=== PATIENT | male | born 1960 | race Caucasian/White ===

== ENCOUNTER 2016-10-21 22:40 | Emergency (ER) | payer MEDICARE, OTHER ==
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
[~2016-10-21 22:40] MED LIST: AUGMENTIN PO; BACTRIM DS TABL1 TAB PO; DEPAKOTE ER PO; DILANTIN PO; FLOXIN20 EA AS; KEFLEX PO; KENALOG IN ORABA5 GM TOP; KEPPRA1000 MG PO; KEPPRA750 MG PO; NEURONTIN PO
== END 2016-10-22 00:10 | disposition home or self-care (01) ==
LOC: CED 22:40
DX: S82.145A Nondisplaced bicondylar fracture of left tibia, initial encounter for closed fracture (principal); S52.592A Other fractures of lower end of left radius, initial encounter for closed fracture; F17.200 Nicotine dependence, unspecified, uncomplicated; W22.8XXA Striking against or struck by other objects, initial encounter
CPT/HCPCS: 29125; 29505; 73110; 73562; 99284

== ENCOUNTER 2016-12-18 23:53 | Emergency (ER) | payer MEDICARE, OTHER ==
--- NOTE | ~2016-12-18 | EKG ---
PATIENT: REGINO CHAN UNIT #: [id number] Ventricular Rate: 82 BPM Atrial Rate: 82 BPM P-R Interval: 140 ms QRS Duration: 92 ms Q-T Interval: 352 ms QTC Calculation(Bezet): 411 ms P [place]: 28 degrees Calculated R [place]: 34 degrees Calculated T [place]: 54 degrees Diagnosis Line: Normal sinus rhythm Diagnosis Line: RSR' or QR pattern in V1 suggests right Diagnosis Line: ventricular conduction delay Diagnosis Line: Borderline ECG Diagnosis Line: No previous ECGs available Diagnosis Line: Confirmed by NOAH LACY MD ([id number]) on Diagnosis Line: 12/20/2016 10:46:04 AM INTERPRETING MD: JOSE L
--- NOTE | ~2016-12-18 | CR63 ---
[facility] A Service of [facility] & [facility] RADIOLOGY TEXT RESULTS PATIENT: REGINO CHAN LOCATION: [facility] : 64 UNIT #: [id number] AGE: [address]: HUNTER GUTIERREZ SEX: M ORDER DR: [id number] [facility] [address] [place] [address] [place], [place] [address] [id number] P MR#: [id number] Acc #: [id number] NAME: REGINO CHAN. : 1960 SEX: M STUDY DATE/TIME: 12/19/2016 0:47 UNIT: [facility] ROOM: STUDY DESCRIPTION: CR Chest 2 View Attending Physician: Hunter Gutierrez Aprn Ordering Physician: Alex Woods M.D. Primary Care Physician: No Primary Care Physician MEDICAL IMAGING REPORT This report is preliminary unless electronic signature is present EXAM Two-view chest. INDICATIONS Chest pain for the past 2 days. PROCEDURE Frontal and lateral views of the chest. COMPARISON None. FINDINGS Heart size is normal. No dense consolidation. No pleural fluid. No pneumothorax. IMPRESSION No active process. Dictated by... Abdoul Keith M.D. THIS IS AN ELECTRONICALLY VERIFIED REPORT Abdoul Keith M.D. at 12/19/2016 9:54 PM EED/bd TD: 12/19/2016 12:03 JOB #: [id number] MEDICAL IMAGING REPORT Page 1 of 1 COPY
== END 2016-12-19 03:20 | disposition home or self-care (01) ==
LOC: CED 23:53
DX: S20.212A Contusion of left front wall of thorax, initial encounter (principal); Z90.89 Acquired absence of other organs; Y04.8XXA Assault by other bodily force, initial encounter; Y92.009 Unspecified place in unspecified non-institutional (private) residence as the place of occurrence of the external cause
CPT/HCPCS: 71020; 93005; 99284

== ENCOUNTER 2016-12-24 18:24 | Emergency (ER) | payer MEDICARE, OTHER ==
--- NOTE | ~2016-12-24 | CR281 ---
[facility] A Service of [facility] & [facility] RADIOLOGY TEXT RESULTS PATIENT: REGINO CHAN LOCATION: [facility] : 64 UNIT #: [id number] AGE: [address]: WALTER STOLL APRN SEX: M ORDER DR: [id number] [facility] [address] [place], [place] [address] [id number] E MR#: [id number] Acc #: [id number] NAME: REGINO CHAN. : 1960 SEX: M STUDY DATE/TIME: 12/24/2016 18:39 UNIT: [facility] ROOM: STUDY DESCRIPTION: CR Wrist Min 3 View Lt Attending Physician: Walter Stoll Aprn Ordering Physician: Ed Sumeet Menezes M.D. Primary Care Physician: No Primary Care Physician MEDICAL IMAGING REPORT This report is preliminary unless electronic signature is present EXAM Left wrist 4 views 12/24/2016 HISTORY Left wrist pain status post fall onto left wrist 1 hour ago with left wrist deformity. FINDINGS Four views of the left wrist demonstrate comminuted impacted fracture of the distal radius. Additionally, there is a displaced fracture of the ulnar styloid process. No other fracture or dislocation is seen. The bones are normally mineralized. There is soft tissue swelling about the left wrist. IMPRESSION 1. Comminuted impacted fracture of the distal radius. 2. Displaced fracture of the ulnar styloid process. 3. Soft tissue swelling about the left wrist. Dictated by... Rafa Sue M.D. THIS IS AN ELECTRONICALLY VERIFIED REPORT Rafa Sue M.D. at 12/25/2016 2:11 PM RUDY/felipa TD: 12/25/2016 08:11 JOB #: [id number] MEDICAL IMAGING REPORT Page 1 of 1 COPY
--- NOTE | ~2016-12-24 | CR94 ---
[facility] A Service of [facility] & [facility] RADIOLOGY TEXT RESULTS PATIENT: REGINO CHAN LOCATION: [facility] : 64 UNIT #: [id number] AGE: [address]: WALTER STOLL APRN SEX: M ORDER DR: [id number] [facility] [address] [place], [place] [address] [id number] E MR#: [id number] Acc #: [id number] NAME: REGINO CHAN. : 1960 SEX: M STUDY DATE/TIME: 12/24/2016 21:07 UNIT: [facility] ROOM: STUDY DESCRIPTION: CR Elbow Min 3 Views Rt Attending Physician: Walter Stoll Aprn Ordering Physician: Walter Stoll Aprn Primary Care Physician: No Primary Care Physician MEDICAL IMAGING REPORT This report is preliminary unless electronic signature is present EXAM Right elbow 3 views. HISTORY Elbow pain after fall today. FINDINGS Three views of the right elbow demonstrate a nondisplaced oblique fracture through the anterior margin of the radial head extending into the elbow joint. Questionable minimal elbow effusion. No joint space narrowing. No dislocation. Smoothly marginated calcification along the medial margin of the medial epicondyle is likely developmental or secondary to old trauma. Dictated by... Tarun Ford M.D. THIS IS AN ELECTRONICALLY VERIFIED REPORT Tarun Ford M.D. at 12/25/2016 5:39 PM DFL/shawnee TD: 12/25/2016 09:49 JOB #: [id number] MEDICAL IMAGING REPORT Page 1 of 1 COPY
== END 2016-12-24 22:43 | disposition home or self-care (01) ==
LOC: CED 18:24 → CFTX 18:24
DX: S52.124A Nondisplaced fracture of head of right radius, initial encounter for closed fracture (principal); S52.612A Displaced fracture of left ulna styloid process, initial encounter for closed fracture; S52.592A Other fractures of lower end of left radius, initial encounter for closed fracture; F17.210 Nicotine dependence, cigarettes, uncomplicated; V87.8XXA Person injured in other specified noncollision transport accidents involving motor vehicle (traffic), initial encounter; Y92.410 Unspecified street and highway as the place of occurrence of the external cause
CPT/HCPCS: 29105; 29125; 73080; 73110; 99283